=== PATIENT | female | born 1980 | race Caucasian/White ===

== ENCOUNTER 2017-05-31 11:00 | Emergency (ER) | payer BC ==
--- NOTE | 2017-05-31 11:28 | EDM.PDOC ---
ED HPI GENERAL MEDICAL PROBLEM - General Chief Complaint: General Stated Complaint: NUMBNESS AND TINGLING FEET AND ARM Time Seen by Provider: 05/31/17 11:00 Source of Information: Reports: Patient History Limitations: Reports: No Limitations - History of Present Illness INITIAL COMMENTS - FREE TEXT/NARRATIVE: 37 YO WF presents to ER with numbness/tingling/cold sensation to bilateral feet which began 2 hours ago. Pt reports she had a uterine ablation performed on . Pt denies any heavy bleeding, denies any dizziness or shortness of breath. 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 Pt reports taking these medications today. Pt denies any headache, low back pain or weakness. Pt denies any difficulty ambulating or change in speech. Onset Date: 05/31/17 Duration: Hour(s): (2) Location: Reports: Lower Extremity, Left, Lower Extremity, Right Quality: Reports: Dull Severity: Mild Improves with: Reports: None Worsens with: Reports: None Associated Symptoms: Reports: No Other Symptoms - Related Data Allergies Allergy/AdvReac Type Severity Reaction Status Date / Time acetaminophen [From Vicodin] Allergy Rash Verified 05/31/17 11:08 Fish Containing Products Allergy Rash Verified 05/31/17 11:08 hydrocodone bitartrate Allergy Rash Verified 05/31/17 11:08 [From Vicodin] Penicillins Allergy Cannot Verified 05/31/17 11:08 Remember shellfish derived Allergy Rash Verified 05/31/17 11:08 tramadol HCl [From Ultram] Allergy Dizziness Verified 05/31/17 11:08 Home Meds: Home Meds EPINEPHrine [Epinephrine] 0.3 ml IM DAILY PRN 12/19/13 [History] Acetaminophen [Tylenol Extra Strength] 1,000 mg PO Q8H PRN 08/02/14 [History] Ibuprofen [Advil] 800 mg PO Q6H PRN 08/02/14 [History] Cyclobenzaprine HCl [Cyclobenzaprine HCl] 10 mg PO TID 02/24/15 [History] oxyCODONE HCl/Acetaminophen [oxyCODONE-Acetaminophen 5-325] 1 tab PO Q6H PRN [History] Past Medical History - Past Health History Medical/Surgical History: Denies Medical/Surgical History Other OB/BYN History: 3 Para 2 Other Musculoskeletal History: fall last July and hurt back Social & Family History - Tobacco Use Smoking Status *Q: Current Every Day Smoker Years of Tobacco use: 20 Used Tobacco, but Quit: No Second Hand Smoke Exposure: Yes - Alcohol Use Days Per Week of Alcohol Use: 1 Number of Drinks Per Day: 6 Total Drinks Per Week: 6 - Recreational Drug Use Recreational Drug Use: No - Living Situation & Occupation Living situation: Reports: ED ROS GENERAL - Review of Systems Review Of Systems: See Below Constitutional: Reports: No Symptoms HEENT: Reports: No Symptoms Respiratory: Reports: No Symptoms Cardiovascular: Reports: No Symptoms Endocrine: Reports: No Symptoms GI/Abdominal: Reports: No Symptoms : Reports: No Symptoms Musculoskeletal: Reports: No Symptoms Skin: Reports: No Symptoms Neurological: Reports: Numbness, Paresthesia, Tingling. Denies: Confusion, Dizziness, Headache, Pre-Existing Deficit, Seizure, Syncope, Tremors, Trouble Speaking, Difficulty Walking, Weakness, Change in Speech, Gait Disturbance Psychiatric: Reports: No Symptoms Hematologic/Lymphatic: Reports: No Symptoms Immunologic: Reports: No Symptoms ED EXAM, GENERAL - Physical Exam Exam: See Below Exam Limited By: No Limitations General Appearance: Alert, WD/WN, No Apparent Distress Eye Exam: Bilateral Eye: EOMI, PERRL Nose: Normal Inspection, Normal Mucosa, No Blood Throat/Mouth: Normal Inspection, Normal Lips, Normal Teeth, Normal Gums, Normal Oropharynx, Normal Voice, No Airway Compromise Head: Atraumatic, Normocephalic Neck: Normal Inspection, Supple, Non-Tender, Full Range of Motion Respiratory/Chest: No Respiratory Distress, Lungs Clear, Normal Breath Sounds, No Accessory Muscle Use, Chest Non-Tender Cardiovascular: Normal Peripheral Pulses, Regular Rate, Rhythm, No Edema, No Gallop, No JVD, No Murmur, No Rub GI/Abdominal: Normal Bowel Sounds, Soft, Non-Tender, No Organomegaly, No Distention, No Abnormal Bruit, No Mass Back Exam: Normal Inspection, Full Range of Motion, NT Extremities: Normal Inspection, Normal Range of Motion, Non-Tender, Normal Capillary Refill, No Pedal Edema Neurological: Alert, Oriented, CN II-XII Intact, Normal Cognition, Normal Gait, Normal Reflexes, No Motor/Sensory Deficits Psychiatric: Normal Affect, Normal Mood Skin Exam: Warm, Dry, Intact, Normal Color, No Rash Lymphatic: No Adenopathy Course - Vital Signs Last Recorded V/S: Last Vital Signs Temp 36.6 C 05/31/17 11:16 Pulse 85 05/31/17 11:24 Resp 18 05/31/17 11:24 BP 127/65 05/31/17 11:24 Pulse Ox 99 05/31/17 11:24 - Orders/Labs/Meds Orders: Active Orders 24 hr Category Date Time Status Head wo Cont [CT] Stat Exams 05/31/17 11:09 Ordered Labs: Laboratory Tests 05/31/17 05/31/17 Range/Units 11:20 11:20 WBC 14.5 H (5.0-10.0) 10^3/uL RBC 4.44 (3.80-5.50) 10^6/uL Hgb 13.4 (12.0-16.0) g/dL Hct 40.4 (37.0-47.0) % MCV 90.9 (82.0-92.0) fL MCH 30.2 (27.0-31.0) pg MCHC 33.2 (32.0-36.0) g/dL RDW 13.7 (11.5-14.5) % Plt Count 346 H (150-300) 10^3/uL MPV 7.9 (7.4-10.4) fL Neut % (Auto) 66.1 (50.0-70.0) % Lymph % (Auto) 26.1 (20.0-40.0) % [place] % (Auto) 6.2 (2.0-8.0) % Eos % (Auto) 0.6 L (1.0-3.0) % Baso % (Auto) 1.0 (0.0-1.0) % Neut # (Auto) 9.6 H (2.5-7.0) 10^3/uL Lymph # (Auto) 3.8 (1.0-4.0) 10^3/uL [place] # (Auto) 0.9 H (0.1-0.8) 10^3/uL Eos # (Auto) 0.1 (0.1-0.3) 10^3/uL Baso # (Auto) 0.1 (0.0-0.1) 10^3/uL Sodium 143 (136-145) mmol/L Potassium 3.7 (3.3-5.3) mmol/L Chloride 107 (98-115) mmol/L Carbon Dioxide 29.7 (21.0-32.0) mmol/L BUN 10 (6-25) mg/dL Creatinine 0.78 (0.51-1.17) mg/dL Est Cr Clr Drug Dosing 91.55 mL/min Estimated GFR (MDRD) > 60 mL/min Glucose 81 (70-110) mg/dL Calcium 8.9 (8.7-10.3) mg/dL - Radiology Interpretation Free Text/Narrative:: CT head- 12mm hyperdense mass in left occipital lobe which is similar to MRI report 02/2015. NAD Departure - Departure Time of Disposition: 11:57 Disposition: Home, Self-Care 01 Condition: Good Clinical Impression: Paresthesia of foot, bilateral - Discharge Information Instructions: Peripheral Neuropathy Referrals: Deanne Haas MD [Primary Care Provider] - Forms: ED Department Discharge - My Orders Last 24 Hours: My Active Orders 05/31/17 11:09 Head wo Cont [CT] Stat - Assessment/Plan Last 24 Hours: My Active Orders 05/31/17 11:09 Head wo Cont [CT] Stat Assessment:: 1. bilateral foot parathesias Plan: 1. discharge home 2. follow up in clinic next 24-48 hours for further management and treatment and possible repeat MRI for evaluation of interval change 3. return to ER for worsening symptoms
[2017-05-31 11:47] LABS: CHLORIDE,CL 107 mmol/L (98-115); SODIUM,NA 143 mmol/L (136-145)
[2017-05-31 13:14] VITALS: BP 125/68
== END 2017-05-31 13:25 | disposition home or self-care (01) ==
LOC: KA.ED 11:00
DX: R20.2 Paresthesia of skin (principal); F17.200 Nicotine dependence, unspecified, uncomplicated; Z88.5 Allergy status to narcotic agent; Z88.0 Allergy status to penicillin; Z91.013 Allergy to seafood; Z79.899 Other long term (current) drug therapy
CPT/HCPCS: 36415; 70450; 80048; 85025; 99284